=== PATIENT | male | born 1975 | race Caucasian/White ===

== ENCOUNTER 2018-06-06 14:12 | Emergency (ER) | payer SELFPAY ==
[~2018-06-06] VITALS: Ht 172.7 cm; Wt 84.1 kg
[~2018-06-06 14:12] MED LIST: HYDROCODONE-APA1 TAB PO; TESTOSTERON200 MG/ML IM; VALIUM5 MG PO; VIAGRA100 MG PO
[2018-06-06 14:14] VITALS: Ht 172.7 cm; Wt 84.1 kg
[2018-06-06] MEDS ORDERED: ROBAXIN500 MG PO (15:58)
[2018-06-06 16:00] VITALS: BP 125/81
== END 2018-06-06 16:01 | disposition home or self-care (01) ==
LOC: D.ER 14:12
DX: S39.011A Strain of muscle, fascia and tendon of abdomen, initial encounter (principal); V09.9XXA Pedestrian injured in unspecified transport accident, initial encounter; Y93.55 Activity, bike riding; Y92.410 Unspecified street and highway as the place of occurrence of the external cause; S80.01XA Contusion of right knee, initial encounter; S50.02XA Contusion of left elbow, initial encounter; F17.200 Nicotine dependence, unspecified, uncomplicated